=== PATIENT | male | born 1930 | race Caucasian/White ===

== ENCOUNTER → 2017-05-06 | Outpatient (CLI) | payer MEDICARE ==
[~2017-05-06] MED LIST: ALLOPURINOL300 MG PO; ASPIRIN81 MG PO; FLOMAX0.4 MG PO; MEVACOR20 MG PO; NORVASC5 M1 PO; PROSCAR5 MG PO; SYNTHROID75 MCG PO
== END | disposition short-term general hospital (02) ==
LOC: CLNEUR 10:38
DX: M48.06 Spinal stenosis, lumbar region (principal)